=== PATIENT | female | born 1985 | race African-American/Black ===

== ENCOUNTER → 2023-08-11 12:56 | Outpatient (REF) | payer OTHER, SELFPAY ==
[2023-08-12 15:54] LABS: Mumps Virus IgG Positive; Rubeola (Measles) IgG Positive; Varicella Zoster IgG (VZV) Positive
[2023-08-12 20:21] LABS: Rubella Positive
[2023-08-12 22:34] LABS: Hepatitis B Surface Antibody Positive
== END ==
LOC: OHS 12:56
PROVIDERS: ATTENDING PHYSICIAN Nurse Practitioner Family
DX: Z23 Encounter for immunization (principal)
CPT/HCPCS: 36415; 86706; 86735; 86762; 86765; 86787